=== PATIENT | female | born 1950 | race African-American/Black ===

== ENCOUNTER 2016-08-19 19:52 | Emergency (ER) | payer OTHER, SELFPAY ==
[2016-08-19] MEDS ORDERED: Ketorolac Tromethamine 60 MG/2 ML VIAL ONE (20:02)
[2016-08-19] MEDS ORDERED: Oxymetazoline HCl 0.05% ( 15 ML ) ONE (20:02)
[2016-08-19] MEDS ORDERED: Magnesium Citrate 300 ML BOT ONE (20:03)
[2016-08-19] MEDS ORDERED: Labetalol HCl 100 MG/20 ML VIAL ONE (20:24)
[2016-08-19 20:34] LABS: #Basophils 0.1 thou/uL (0.0-0.2); #Eosinphils 0.3 thou/uL (0.0-0.7); #Lymphocytes 3.5 thou/uL (1.20-3.40); #Monocytes 0.6 thou/uL (0.11-0.59); #Neutrophils 3.6 thou/uL (1.40-6.50); %Basophils 1.6 % (0.0-1.0); %Eosinophils 3.2 % (0.0-10.0); %Lymphocytes 43.4 % (21.0-51.0); Hematocrit 58.1 % (36.0-47.0); Mean Platelet Volume 11.2 fL (7.4-10.4); Red Blood Cell (RBC) Count 6.09 mill/uL (4.20-5.40)
[2016-08-19 20:47] LABS: ALT (SGPT) 15 U/L (0-55); AST (SGOT) 19 U/L (5-34); Alkaline Phosphatase 108 U/L (40-150); Anion Gap 17 mmol/L (10-20); BUN (Urea Nitrogen) 12 mg/dL (9.8-20.1); Bilirubin, Total 0.7 mg/dL (0.2-1.2); Calc. Creatinine Clearance 0 mL/min (70-130); Calcium 9.3 mg/dL (7.8-10.44); Carbon Dioxide 27 mmol/L (23-31); Chloride 96 mmol/L (98-107); Estimated GFR-MDRD 55; Globulin 4.1 g/dL (2.4-3.5); Protein, Total 7.9 g/dL (5.8-8.1)
[2016-08-19 20:48] LABS: Troponin I 0.033 ng/mL (< 0.028)
[2016-08-19] MEDS ORDERED: Ondansetron HCl/PF 4 MG/2 ML Vial ONE (20:51)
--- NOTE | 2016-08-19 21:23 | RAD ---
PORTABLE CHEST: History: Chest pain. Patient also gives a history of a spot on her lungs from TB. Comparison: Chest CT, January 2014. FINDINGS: The prior chest CT revealed three peripheral pleural based mass like densities in the right lung, on e measured approximately 5 cm and another measured up to 2.5 cm with the third measuring approximate ly 2.0 cm. There are chronic lung changes and hyperexpansion. On today's exam there is an abnormal area of density in the peripheral right lung which extends to t he pleural surface. The findings could represent acute infiltrate or underlying mass lesion. This area of density may correspond to one of the pleural base mass densities seen on the prior CT. The lung appears clear although there is some stranding in the left apex which appears probably stab le when compared to the prior CT. IMPRESSION: Focal density in the peripheral right lung extending to the pleural surface which could represent in flammatory infiltrate or underlying mass lesion. POS: [facility]
== END 2016-08-19 21:48 | disposition short-term general hospital (02) ==
LOC: NAV ERS 19:52
DX: R04.0 Epistaxis (principal); I16.0 Hypertensive urgency; E11.9 Type 2 diabetes mellitus without complications; F17.210 Nicotine dependence, cigarettes, uncomplicated; Z79.01 Long term (current) use of anticoagulants; Z79.899 Other long term (current) drug therapy
CPT/HCPCS: 30903; 71010; 80053; 82553; 84484; 85025; 93005; 94760; 96374; 96375; J1170; J1885; J2270; J2405

== ENCOUNTER 2017-07-21 17:16 | Emergency (ER) | payer OTHER, SELFPAY ==
[~2017-07-21 17:16] MED LIST: Iopamidol 370 76% 100 ML VIAL ONE
[2017-07-21 18:34] LABS: ALT (SGPT) 7 U/L (8-55); AST (SGOT) 10 U/L (5-34); Albumin 2.9 g/dL (3.4-4.8); Alkaline Phosphatase 62 U/L (40-150); Anion Gap 13 mmol/L (10-20); BUN (Urea Nitrogen) 14 mg/dL (9.8-20.1); Bilirubin, Total 0.6 mg/dL (0.2-1.2); Calc. Creatinine Clearance 0 mL/min (70-130); Calcium 9.1 mg/dL (7.8-10.44); Carbon Dioxide 33 mmol/L (23-31); Chloride 81 mmol/L (98-107); Estimated GFR-MDRD 72; Globulin 3.6 g/dL (2.4-3.5); Glucose 86 mg/dL (80-115); Potassium 3.2 mmol/L (3.5-5.1); Protein, Total 6.5 g/dL (6.0-8.3); Sodium 124 mmol/L (136-145)
[2017-07-21 18:35] LABS: CKMB 0.8 ng/mL (0-6.6); Troponin I 0.093 ng/mL (< 0.028)
[2017-07-21] MEDS ORDERED: Azithromycin 500 MG VIAL ONE (18:35)
[2017-07-21] MEDS ORDERED: Sodium Chloride 0.9% 250 ML 250 ML ONE ×2 (18:36→18:52)
[2017-07-21 18:39] LABS: Hemoglobin 14.4 g/dL (12.0-16.0); Mean Corpuscular HGB CONC 30.6 g/dL (32.0-36.0); Mean Corpuscular Hemoglobin 27.1 pg (27.0-31.0); Mean Corpuscular Volume 88.9 fl (81.0-99.0); Mean Platelet Volume 9.5 fL (7.4-10.4); Platelet Count 255 thou/uL (130-400); Red Blood Cell (RBC) Count 5.29 mill/uL (4.20-5.40); White Blood Cell (WBC) Count 10.4 thou/uL (4.8-10.8)
[2017-07-21 18:42] LABS: Band 1 % (5-11); Eosinophils 8 % (0-10); Lymphocytes 29 % (21-51); MDiff Complete? YES; Monocytes 5 % (0-10); Neutrophil 56 % (42-75); PLT Morphology Comment Appears Adequate; RBC Morphology Normal
[2017-07-21] MEDS ORDERED: Potassium Chloride 20 MEQ TAB ONE (18:51)
[2017-07-21] MEDS ORDERED: Sodium Chloride 0.9% 1,000 ML ONE (18:51)
--- NOTE | 2017-07-21 19:19 | RAD ---
PORTABLE AP CHEST RADIOGRAPH: Date: 07-21-17 History: Dyspnea and shortness of breath for one month. Comparison: 08-19-16 FINDINGS: There is a rounded mass like area of increased density in the right lung base as well as area of cons olidation in the right midlung zone. There is also increased interstitial opacities bilaterally with pleural based density on the right. Findings may be related to infectious process with focal area of consolidation on the right representing pneumonia. However, underlying mass could not be entirely exc luded. There was a focal area of consolidation seen on the right lung base on the prior exam, but the findings within the lungs bilaterally have increased. Cardiac silhouette is magnified by projection. No other interval change. IMPRESSION: 1. Interval increase in interstitial opacities bilaterally as well as rounded mass like area at the r ight lung base. Similar finding was seen on the prior study, and findings could be related to recurre nt pneumonia; although, a mass cannot be excluded. There are also parenchymal changes in the right mi dlung zone worrisome for pneumonia. 2. Small bilateral pleural effusions are present. 3. Follow up to complete resolution is recommended to exclude neoplastic process. POS: [facility]
--- NOTE | 2017-07-21 22:12 | CT ---
CTA CHEST WITH 3D VOLUME RENDERING: Comparison: 08-20-16 Clinical history: Dyspnea with productive cough and shortness of breath. FINDINGS: No evidence of a significant filling defect of the pulmonary arterial system. There is multifocal den se consolidation throughout the bilateral pulmonary parenchyma with cavitation, markedly progressed f rom the 08-20-16 exam. There is scattered atherosclerosis including coronary artery calcium. Incomplet sudhakar assessed density involves the left abdomen, not fully characterized. Mild pericardial fluid is pr esent. There are areas of prominent soft tissue of the mediastinum, indicative of adenopathy. IMPRESSION: 1. No large central pulmonary embolus. 2. Extensive multifocal consolidation bilaterally with areas of cavitation. There has been progressiv e size increase of previously documented right lower lobe consolidation measuring 6.6 cm, compared to a similar location of 4.2 cm on prior exam. This may relate to progressive area of malignancy versus chronic consolidation. Given multifocality of findings and cavitation, entities such as atypical inf ection versus cavitary malignancy should be further discerned clinically. 3. Extensive pulmonary emphysema. 4. There is evidence of thoracic adenopathy which could relate to reactive or neoplastic etiology. 5. Recommend follow up with pulmonary medicine consultation. POS: [facility]
== END 2017-07-21 19:53 | disposition short-term general hospital (02) ==
LOC: NAV ERS 17:16
DX: J18.9 Pneumonia, unspecified organism (principal); E87.6 Hypokalemia; I10 Essential (primary) hypertension; R74.8 Abnormal levels of other serum enzymes; E11.9 Type 2 diabetes mellitus without complications; F17.210 Nicotine dependence, cigarettes, uncomplicated; Z79.82 Long term (current) use of aspirin; Z79.899 Other long term (current) drug therapy
CPT/HCPCS: 36415; 71045; 71275; 80053; 82553; 83605; 83880; 84484; 85025; 87040; 93005; 94640; 94760; 96365; J0456; J3370; J7050; J7620